=== PATIENT | male | born 1995 | race American Indian/Alaskan Native ===

== ENCOUNTER 2018-02-08 15:35 | Inpatient (IN) | payer BC ==
[2018-02-08] MEDS ORDERED: Sodium Chloride 0.9% 1,000 ML IV STA (16:05)
[2018-02-08] MEDS ORDERED: Iohexol 300 100 ML IJ ONE ×3 (16:13→16:14)
[2018-02-08] MEDS ORDERED: Sodium Chloride 0.9% 50 ML IV ONE (16:15)
[2018-02-08 16:38] LABS: BASO % 0.7 % (0.0-2.0); EOS % 0.5 % (0.0-4.0); HEMOGLOBIN 14.9 g/dL (12.0-18.0); LYMPH # 1.2 K/uL (1.0-4.3); LYMPH % 18.6 % (20.0-40.0); MEAN CELL VOLUME 89.4 fl (80.0-94.0); MEAN CORPUSCULAR HGB CONC 33.6 g/dL (33.0-37.0); MONO # 0.7 K/uL (0.0-0.8); MONO % 11.1 % (0.0-10.0); NEUT # 4.4 K/uL (1.8-7.0); NEUT % 69.1 % (50.0-75.0); NRBC % 0.1 % (0.0-0.0); RBC 4.94 Mil/uL (4.40-5.90); RED CELL DISTRIBUTION WIDTH 13.5 % (11.5-14.5); WHITE BLOOD COUNT 6.3 K/uL (4.8-10.8)
[2018-02-08 16:44] LABS: URINE BILIRUBIN NEGATIVE (NEGATIVE); URINE BLOOD NEGATIVE (NEGATIVE); URINE CLARITY SLIGHTY-CLOUDY (Clear); URINE COLOR YELLOW (YELLOW); URINE GLUCOSE (UA) NEG (Normal); URINE LEUKOCYTE ESTERASE NEG Leu/uL (Negative); URINE PROTEIN NEGATIVE (NEGATIVE); URINE UROBILINOGEN 0.2-1.0 mg/dL (0.2-1.0)
[2018-02-08 16:46] LABS: ALB/GLOB RATIO 1.2 (1.0-2.1); ALT/SGPT 39 U/L (21-72); AST/SGOT 32 U/L (17-59); BLOOD UREA NITROGEN 12 mg/dl (9-20); CALCIUM 9.5 mg/dL (8.4-10.2); GFR NON-AFRICAN AMERICAN > 60; INR 1.2 (0.9-1.2); LIPASE 31 U/L (23-300); PARTIAL THROMBOPLASTIN TIME 31.9 Seconds (25.6-37.1)
--- NOTE | 2018-02-08 17:02 | ED PDOC ---
HPI: Abdomen Time Seen by Provider: 02/08/18 15:43 Chief Complaint (Nursing): Abdominal Pain Chief Complaint (Provider): Abdominal Pain History Per: Patient History/Exam Limitations: no limitations Onset/Duration Of Symptoms: Hrs Current Symptoms Are (Timing): Still Present Location Of Pain/Discomfort: Diffuse Quality Of Discomfort: Cramping Associated Symptoms: Vomiting. denies: Fever, Diarrhea Additional Complaint(s): Edward Precsott is a 22 year old male with a past medical history of asthma who is presenting to the ED for evaluation of abdominal cramping and episodes of non -bloody vomiting, onset earlier this morning after he ate a burrito. Patient denies any diarrhea, or fevers. He offers no other medical complaints at this time. PMD: none provided Past Medical History Reviewed: Historical Data, Nursing Documentation, Vital Signs Vital Signs: Last Vital Signs Temp 98.5 F 02/08/18 15:37 Pulse 69 02/08/18 15:37 Resp 18 02/08/18 15:37 BP 155/73 H 02/08/18 15:37 Pulse Ox 100 02/08/18 17:31 - Medical History PMH: Asthma Denies: Anemia, Anxiety, Arthritis, Bronchitis, CHF, Crohn's Disease, Depression, Fibromyalgia, Fractures, Gastritis, Gall Bladder Disease, HIV, HTN, Hypercholesterolemia, Hyperthyroidism, Hypothyroidism, Kidney Stones, Migraine, Mitral Valve Prolapse, Pancreatitis, Peripheral Edema, Pneumonia, Pulmonary Embolism, Chronic Kidney Disease, Seizures, Sickle Cell Disease, Sleep Apnea - Surgical History Surgical History: Appendectomy (03/01/14) Denies: Cholecystectomy - Family History Family History: States: Unknown Family Hx - Social History Current smoker - smoking cessation education provided: No Alcohol: None Drugs: Denies - Home Medications Home Medications: Ambulatory Orders Medication Instructions Recorded No Known Home Med 02/08/18 - Allergies Allergies/Adverse Reactions: Allergies Allergy/AdvReac Type Severity Reaction Status Date / Time shellfish derived Allergy RASH Verified 02/08/18 15:37 Review of Systems ROS Statement: Except As Marked, All Systems Reviewed And Found Negative Constitutional: Negative for: Fever Gastrointestinal: Positive for: Vomiting, Abdominal Pain. Negative for: Diarrhea Physical Exam - Reviewed Nursing Documentation Reviewed: Yes Vital Signs Reviewed: Yes - Physical Exam Appears: Positive for: Non-toxic, No Acute Distress Head Exam: Positive for: ATRAUMATIC, NORMAL INSPECTION, NORMOCEPHALIC Skin: Positive for: Normal Color, Warm, DRY Eye Exam: Positive for: EOMI, Normal appearance, PERRL ENT: Positive for: Normal ENT Inspection Neck: Positive for: Normal, Painless ROM Cardiovascular/Chest: Positive for: Regular Rate, Rhythm. Negative for: Murmur Respiratory: Positive for: Normal Breath Sounds. Negative for: Respiratory Distress Gastrointestinal/Abdominal: Positive for: Soft, Tenderness (left upper and lower quadrant tenderness). Negative for: Mass, Distended, Guarding, Rebound Back: Positive for: Normal Inspection. Negative for: L CVA Tenderness, R CVA Tenderness, Vertebral Tenderness Extremity: Positive for: Normal ROM. Negative for: Deformity, Swelling Neurologic/Psych: Positive for: Alert, Oriented. Negative for: Motor/Sensory Deficits - Laboratory Results Result Diagrams: 02/08/18 16:33 02/08/18 16:33 - ECG O2 Sat by Pulse Oximetry: 100 (RA) Pulse Ox Interpretation: Normal Medical Decision Making Medical Decision Making: Time: 16:05 Impression: gastritis vs. 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 Scribe Attestation: Documented by, Kaia Patrick acting as a scribe for Florecita Medina MD. Provider Scribe Attestation: All medical record entries made by the Scribe were at my direction and personally dictated by me. I have reviewed the chart and agree that the record accurately reflects my personal performance of the history, physical exam, medical decision making, and the department course for this patient. I have also personally directed, reviewed, and agree with the discharge instructions and disposition. Disposition - Clinical Impression Clinical Impression: Intestinal obstruction - Patient ED Disposition Is Patient to be Admitted: Yes - Disposition Disposition Time: 17:35 Condition: GUARDED Forms: [facility]) - Pt Status Changed To: Hospital Disposition Of: Inpatient - Admit Certification Admit to Inpatient:: After my assessment, the patient will require hospitalization for at least two midnights. This is because of the severity of symptoms shown, intensity of services needed, and/or the medical risk in this patient being treated as an outpatient. - POA Present On Arrival: None
--- NOTE | 2018-02-08 17:33 | CT ---
Date of service: 02/08/2018 PROCEDURE: CT Abdomen and Pelvis with contrast HISTORY: L sided abd pain, vomiting COMPARISON: CT scan of the abdomen and pelvis dated 03/05/2014. TECHNIQUE: Contrast dose: 95 mL Omnipaque 300 Radiation dose: Total exam DLP = 387.9 mGy-cm. This CT exam was performed using one or more of the following dose reduction techniques: Automated exposure control, adjustment of the mA and/or kV according to patient size, and/or use of iterative reconstruction technique. FINDINGS: LOWER THORAX: Unremarkable. LIVER: Unremarkable. No gross lesion or ductal dilatation. GALLBLADDER AND BILE DUCTS: Unremarkable. PANCREAS: Unremarkable. No gross lesion or ductal dilatation. SPLEEN: Unremarkable. ADRENALS: Unremarkable. No mass. KIDNEYS AND URETERS: Unremarkable. No hydronephrosis. No solid mass. VASCULATURE: Unremarkable. No aortic aneurysm. BOWEL: Swirling of mesenteric vessels and a loop of bowel with extensive mesenteric edema and small volume pelvic fluid. Loop of bowel seen within the extensive focal mesenteric edema with very thickened edematous wall. APPENDIX: Prior appendectomy. PERITONEUM: Surgical clips adjacent to the rectum and along the right pelvic sidewall. No free air. LYMPH NODES: Unremarkable. No enlarged lymph nodes. BLADDER: Unremarkable. REPRODUCTIVE: Unremarkable. BONES: No acute fracture. OTHER FINDINGS: None. IMPRESSION: Swirling of mesenteric vessels and loop of bowel with extensive mesenteric edema and small volume pelvic fluid concerning for possible closed loop obstruction with bowel compromise. Heart and surgical consultation is advised. No pneumatosis or evidence of portal venous gas. Findings conveyed to Dr. Medina by Dr. Uribe at 5:20 p.m. on 02/08/2018.
[2018-02-08] MEDS ORDERED: HYDROmorphone 0.5 mg/0.5 ml ISec IVP PRN (18:15)
--- NOTE | 2018-02-08 18:26 | CP.PCM.CON ---
History of Present Illness - History of Present Illness History of Present Illness: General Surgery Dr. Austin 22 y/o M w/ PMHx of tobacco abuse, marijuana use, and asthma presents to the ED c/o abd pain. Pt reports pain started this AM s/p eating breakfast burritto. Pt denies similar pain in the past. Pt reports nothing makes pain better or worse. Pain localized to LLQ w/ no radiation. Pt reports concurrent NBNB vomiting x2. Pt also admits to constipation w/ small hard BM this AM and abd distention. Pt reports distention similar to when Dx w/ appendicitis. Pt denies F/C, diarrhea, CP, SOB, dysuria, hematemesis. PMHx: see above Meds: reviewed in chart ALL: shellfish PSHx: lap appy (2013); lap converted to open intra-abd abscess drainage (2013) SHx: 1-2 black and milds daily; 1-2 blunts per day; denies EtOH use FHx: noncontributory Review of Systems - Review of Systems All systems: reviewed and no additional remarkable complaints except (see HPI) Past Patient History - Past Medical History & Family History Past Medical History?: No - Past Social History Alcohol: None Drugs: Denies - CARDIAC Hx Congestive Heart Failure: No Hx Hypercholesterolemia: No Hx Hypertension: No Hx Mitral Valve Prolapse: No Hx Peripheral Edema: No - PULMONARY Hx Asthma: Yes Hx Bronchitis: No Hx Pneumonia: No Hx Pulmonary Embolism: No Hx Sleep Apnea: No - NEUROLOGICAL Hx Migraine: No Hx Seizures: No - HEENT Hx Deafness: No Hx Epistaxis: No Hx Glaucoma: No - RENAL Hx Chronic Kidney Disease: No Hx Kidney Stones: No - ENDOCRINE/METABOLIC Hx Hyperthyroidism: No Hx Hypothyroidism: No - HEMATOLOGICAL/ONCOLOGICAL Hx Anemia: No Hx Human Immunodeficiency Virus (HIV): No Hx Sickle Cell Disease: No - INTEGUMENTARY Hx Howard: No Hx Cellulitis: No Hx Eczema: No Hx Psoriasis: No - MUSCULOSKELETAL/RHEUMATOLOGICAL Hx Arthritis: No Hx Fractures: No - GASTROINTESTINAL Hx Crohn's Disease: No Hx Gall Bladder Disease: No Hx Gastritis: No Hx Pancreatitis: No - GENITOURINARY/GYNECOLOGICAL Hx Hematuria: No - PSYCHIATRIC Hx Anxiety: No Hx Depression: No - SURGICAL HISTORY Hx Appendectomy: Yes (03/01/14) Hx Cholecystectomy: No - ANESTHESIA Hx Anesthesia: Yes Hx Anesthesia Reactions: No Hx Malignant Hyperthermia: No Meds Allergies/Adverse Reactions: Allergies Allergy/AdvReac Type Severity Reaction Status Date / Time shellfish derived Allergy RASH Verified 02/08/18 15:37 - Medications Medications: Current Medications Acetaminophen (Tylenol 325 Mg Supp) 650 mg CO Q4 PRN PRN Reason: Pain, Mild (1-3) Hydromorphone HCl (Dilaudid) 0.5 mg IVP Q3 PRN PRN Reason: Pain, moderate (4-7) Stop: 02/10/18 18:16 Ketorolac Tromethamine (Toradol) 30 mg IVP Q6 [facility] Stop: 02/13/18 22:01 Metoclopramide HCl (Reglan) 10 mg IVP Q8 [facility] Physical Exam - Constitutional Appears: Non-toxic, No Acute Distress - Head Exam Head Exam: NORMAL INSPECTION - Eye Exam Eye Exam: Normal appearance - ENT Exam ENT Exam: Mucous Membranes Moist - Respiratory Exam Respiratory Exam: NORMAL BREATHING PATTERN. absent: Accessory Muscle Use, Respiratory Distress - Cardiovascular Exam Cardiovascular Exam: REGULAR RHYTHM. absent: Bradycardia, Tachycardia - GI/Abdominal Exam GI & Abdominal Exam: Distended (minimal ), Firm, Guarding, Rigid, Tenderness ( TTP LLQ). absent: Rebound - Extremities Exam Extremities exam: Negative for: pedal edema, tenderness - Neurological Exam Neurological exam: Alert, Oriented x3 - Psychiatric Exam Psychiatric exam: Normal Affect, Normal Mood - Skin Skin Exam: Dry, Intact, Normal Color, Warm Results - Vital Signs Recent Vital Signs: Last Vital Signs Temp 98.4 F 02/08/18 18:10 Pulse 60 02/08/18 18:10 Resp 12 02/08/18 18:10 BP 144/89 02/08/18 18:10 Pulse Ox 99 02/08/18 18:10 - Labs Result Diagrams: 02/08/18 16:33 02/08/18 16:33 Labs: Laboratory Results - last 24 hr 02/08/18 02/08/18 02/08/18 16:33 16:33 16:33 WBC 6.3 RBC 4.94 Hgb 14.9 Hct 44.2 MCV 89.4 MCH 30.0 MCHC 33.6 RDW 13.5 Plt Count 228 MPV 9.0 Neut % (Auto) 69.1 Lymph % (Auto) 18.6 L [place] % (Auto) 11.1 H Eos % (Auto) 0.5 Baso % (Auto) 0.7 Neut # (Auto) 4.4 Lymph # (Auto) 1.2 [place] # (Auto) 0.7 Eos # (Auto) 0.0 Baso # (Auto) 0.0 PT 13.0 INR 1.2 APTT 31.9 Sodium 143 Potassium 4.4 Chloride 102 Carbon Dioxide 27 Anion Gap 18 BUN 12 Creatinine 1.1 Est GFR ( Amer) > 60 Est GFR (Non-Af Amer) > 60 Random Glucose 111 H Calcium 9.5 Total Bilirubin 0.6 AST 32 ALT 39 Alkaline Phosphatase 60 Total Protein 9.1 H Albumin 5.0 Globulin 4.1 H Albumin/Globulin Ratio 1.2 Lipase 31 Urine Color Urine Clarity Urine pH Ur Specific [place] Urine Protein Urine Glucose (UA) Urine Ketones Urine Blood Urine Nitrate Urine Bilirubin Urine Urobilinogen Ur Leukocyte Esterase Urine RBC (Auto) Urine Microscopic WBC 02/08/18 16:33 WBC RBC Hgb Hct MCV MCH MCHC RDW Plt Count MPV Neut % (Auto) Lymph % (Auto) [place] % (Auto) Eos % (Auto) Baso % (Auto) Neut # (Auto) Lymph # (Auto) [place] # (Auto) Eos # (Auto) Baso # (Auto) PT INR APTT Sodium Potassium Chloride Carbon Dioxide Anion Gap BUN Creatinine Est GFR ( Amer) Est GFR (Non-Af Amer) Random Glucose Calcium Total Bilirubin AST ALT Alkaline Phosphatase Total Protein Albumin Globulin Albumin/Globulin Ratio Lipase Urine Color Yellow Urine Clarity Slighty-cloudy Urine pH 8.0 Ur Specific [place] 1.014 Urine Protein Negative Urine Glucose (UA) Neg Urine Ketones Negative Urine Blood Negative Urine Nitrate Negative Urine Bilirubin Negative Urine Urobilinogen 0.2-1.0 Ur Leukocyte Esterase Neg Urine RBC (Auto) < 1 Urine Microscopic WBC 1 - Imaging and Cardiology CT scan - abdomen Status: Image reviewed by me, Report reviewed by me Assessment & Plan - Assessment and Plan (Free Text) Assessment: 22 y/o M w/ SBO - NPO/IVF - NGT if vomiting develops - Jess [facility] - pain management - serial abd exams - AM labs - GI/DVT PPx - encourage OOB to chair/Amb/IS use Pt discussed w/ Dr. Norman Lamas DO PGY3
--- NOTE | 2018-02-08 18:52 | CP.PCM.HP ---
<Floridalma Miller - Last Filed: 02/09/18 05:21> History of Present Illness - History of Present Illness History of Present Illness: 22 yo M with hx asthma presented to ED today due to complaint of 8/10 dull, aching abdominal pain. He was in usual state of health yesterday and when he woke up this morning. He ate breakfast burrito sandwich this morning, and subsequently developed vomiting x2 and abdominal pain. Denies blood in vomit and describes vomit as consisting of food particles. States he tried to have BM but felt like he was constipated. Denies similar pain in the past but states he felt similar bloating sensation when he was diagnosed with appendicitis in 2013. Denies chest pain, shortness of breath, fevers, chills, issues with urination, leg pain/edema. PMD: Dr. Arciniega PMHx: no chronic medical problems; active tobacco and marijuana user Past Surg hx: lap appendectomy with subsequent open procedure due to abscess ( 2013) Social hx: smokes 1-2 black and milds daily, marijuana use daily, denies any alcohol use Fam hx: denies chronic illness in family members Allergies: shellfish Medications: no chronic medications ED course: Vitals: BP 155/73 on triage, 144/89 repeat. HR 69, Temp 98.5, O2 sat 100 on room air, RR 18 Labs: CBC: 6.3>14.9/44.2<228 CMP: Na 143/K 4.4, Cl 102/CO2 27, BUN 12/Cr 1.1 < 111, AST 32, ALT 39, Lipase 31 UA, unremarkable Coagulation studies: PT 13.0, INR 1.2, PTT 31.9 Imaging: CT abd/pelvis, report available. Concerning for possible closed loop obstruction. Medications: 1L NS 2mg IVP morphine 4mg IVP odansetron 20 mg Dicyclomine Consult: Surgery, Dr. Austin Present on Admission - Present on Admission Any Indicators Present on Admission: No Review of Systems - Review of Systems All systems: reviewed and no additional remarkable complaints except - Gastrointestinal Gastrointestinal: Abdominal Pain, Bloating, Nausea, Vomiting Past Patient History - Past Medical History & Family History Past Medical History?: No - Past Social History Smoking Status: Light Smoker < 10 Cigarettes Daily (black and milds) Alcohol: None Drugs: Cannabis - CARDIAC Hx Congestive Heart Failure: No Hx Hypercholesterolemia: No Hx Hypertension: No Hx Mitral Valve Prolapse: No Hx Peripheral Edema: No - PULMONARY Hx Asthma: Yes Hx Bronchitis: No Hx Pneumonia: No Hx Pulmonary Embolism: No Hx Sleep Apnea: No - NEUROLOGICAL Hx Migraine: No Hx Seizures: No - HEENT Hx Deafness: No Hx Epistaxis: No Hx Glaucoma: No - RENAL Hx Chronic Kidney Disease: No Hx Kidney Stones: No - ENDOCRINE/METABOLIC Hx Hyperthyroidism: No Hx Hypothyroidism: No - HEMATOLOGICAL/ONCOLOGICAL Hx Anemia: No Hx Human Immunodeficiency Virus (HIV): No Hx Sickle Cell Disease: No - INTEGUMENTARY Hx Howard: No Hx Cellulitis: No Hx Eczema: No Hx Psoriasis: No - MUSCULOSKELETAL/RHEUMATOLOGICAL Hx Arthritis: No Hx Fractures: No - GASTROINTESTINAL Hx Crohn's Disease: No Hx Gall Bladder Disease: No Hx Gastritis: No Hx Pancreatitis: No - GENITOURINARY/GYNECOLOGICAL Hx Hematuria: No - PSYCHIATRIC Hx Anxiety: No Hx Depression: No - SURGICAL HISTORY Hx Appendectomy: Yes (03/01/14) Hx Cholecystectomy: No - ANESTHESIA Hx Anesthesia: Yes Hx Anesthesia Reactions: No Hx Malignant Hyperthermia: No Meds Allergies/Adverse Reactions: Allergies Allergy/AdvReac Type Severity Reaction Status Date / Time shellfish derived Allergy RASH Verified 02/08/18 15:37 Physical Exam - Constitutional Appears: No Acute Distress - Head Exam Head Exam: NORMAL INSPECTION - Eye Exam Eye Exam: EOMI, Normal appearance. absent: Scleral icterus - ENT Exam ENT Exam: Mucous Membranes Moist, Normal Oropharynx - Neck Exam Neck exam: Positive for: Normal Inspection - Respiratory Exam Respiratory Exam: Clear to Auscultation Bilateral, NORMAL BREATHING PATTERN. absent: Wheezes, Respiratory Distress - Cardiovascular Exam Cardiovascular Exam: REGULAR RHYTHM, +S1, +S2 - GI/Abdominal Exam GI & Abdominal Exam: Guarding, Hyperactive Bowel Sounds, Soft, Tenderness - Extremities Exam Extremities exam: Positive for: normal inspection. Negative for: calf tenderness, pedal edema - Back Exam Back exam: NORMAL INSPECTION - Neurological Exam Neurological exam: Alert, Oriented x3 - Skin Skin Exam: Dry, Intact, Warm Results - Vital Signs Recent Vital Signs: Last Vital Signs Temp 98.4 F 02/08/18 18:27 Pulse 60 02/08/18 18:27 Resp 12 02/08/18 18:27 BP 144/89 02/08/18 18:27 Pulse Ox 99 02/08/18 18:10 - Labs Result Diagrams: 02/08/18 16:33 02/08/18 16:33 Labs: Laboratory Results - last 24 hr 02/08/18 02/08/18 02/08/18 16:33 16:33 16:33 WBC 6.3 RBC 4.94 Hgb 14.9 Hct 44.2 MCV 89.4 MCH 30.0 MCHC 33.6 RDW 13.5 Plt Count 228 MPV 9.0 Neut % (Auto) 69.1 Lymph % (Auto) 18.6 L [place] % (Auto) 11.1 H Eos % (Auto) 0.5 Baso % (Auto) 0.7 Neut # (Auto) 4.4 Lymph # (Auto) 1.2 [place] # (Auto) 0.7 Eos # (Auto) 0.0 Baso # (Auto) 0.0 PT 13.0 INR 1.2 APTT 31.9 Sodium 143 Potassium 4.4 Chloride 102 Carbon Dioxide 27 Anion Gap 18 BUN 12 Creatinine 1.1 Est GFR ( Amer) > 60 Est GFR (Non-Af Amer) > 60 Random Glucose 111 H Calcium 9.5 Total Bilirubin 0.6 AST 32 ALT 39 Alkaline Phosphatase 60 Total Protein 9.1 H Albumin 5.0 Globulin 4.1 H Albumin/Globulin Ratio 1.2 Lipase 31 Urine Color Urine Clarity Urine pH Ur Specific [place] Urine Protein Urine Glucose (UA) Urine Ketones Urine Blood Urine Nitrate Urine Bilirubin Urine Urobilinogen Ur Leukocyte Esterase Urine RBC (Auto) Urine Microscopic WBC 02/08/18 16:33 WBC RBC Hgb Hct MCV MCH MCHC RDW Plt Count MPV Neut % (Auto) Lymph % (Auto) [place] % (Auto) Eos % (Auto) Baso % (Auto) Neut # (Auto) Lymph # (Auto) [place] # (Auto) Eos # (Auto) Baso # (Auto) PT INR APTT Sodium Potassium Chloride Carbon Dioxide Anion Gap BUN Creatinine Est GFR ( Amer) Est GFR (Non-Af Amer) Random Glucose Calcium Total Bilirubin AST ALT Alkaline Phosphatase Total Protein Albumin Globulin Albumin/Globulin Ratio Lipase Urine Color Yellow Urine Clarity Slighty-cloudy Urine pH 8.0 Ur Specific [place] 1.014 Urine Protein Negative Urine Glucose (UA) Neg Urine Ketones Negative Urine Blood Negative Urine Nitrate Negative Urine Bilirubin Negative Urine Urobilinogen 0.2-1.0 Ur Leukocyte Esterase Neg Urine RBC (Auto) < 1 Urine Microscopic WBC 1 Assessment & Plan - Assessment and Plan (Free Text) Assessment: 22 yo M with past hx asthma admitted for closed loop bowel obstruction seen on CT. Plan: # Bowel Obstruction - General surgery consult, management as per surgery as outlined below - NPO - f/u morning CBC, CMP - Pain control - IV hydration - NGT if vomiting - Serial exams # DVT prophylaxis - SCD and ambulation, hold pharmacological agents for now # Code status - Full code <Elif Tavarez - Last Filed: 02/09/18 09:08> Results - Vital Signs Recent Vital Signs: Last Vital Signs Temp 97.9 F 02/09/18 08:18 Pulse 71 02/09/18 08:18 Resp 20 02/09/18 08:18 BP 146/65 02/09/18 08:18 Pulse Ox 98 02/09/18 08:18 - Labs Result Diagrams: 02/09/18 05:20 02/09/18 05:20 Labs: Laboratory Results - last 24 hr 02/08/18 02/08/18 02/08/18 16:33 16:33 16:33 WBC 6.3 RBC 4.94 Hgb 14.9 Hct 44.2 MCV 89.4 MCH 30.0 MCHC 33.6 RDW 13.5 Plt Count 228 MPV 9.0 Neut % (Auto) 69.1 Lymph % (Auto) 18.6 L [place] % (Auto) 11.1 H Eos % (Auto) 0.5 Baso % (Auto) 0.7 Neut # (Auto) 4.4 Lymph # (Auto) 1.2 [place] # (Auto) 0.7 Eos # (Auto) 0.0 Baso # (Auto) 0.0 PT 13.0 INR 1.2 APTT 31.9 Sodium 143 Potassium 4.4 Chloride 102 Carbon Dioxide 27 Anion Gap 18 BUN 12 Creatinine 1.1 Est GFR ( Amer) > 60 Est GFR (Non-Af Amer) > 60 Random Glucose 111 H Calcium 9.5 Phosphorus Magnesium Total Bilirubin 0.6 AST 32 ALT 39 Alkaline Phosphatase 60 Total Protein 9.1 H Albumin 5.0 Globulin 4.1 H Albumin/Globulin Ratio 1.2 Lipase 31 Urine Color Urine Clarity Urine pH Ur Specific [place] Urine Protein Urine Glucose (UA) Urine Ketones Urine Blood Urine Nitrate Urine Bilirubin Urine Urobilinogen Ur Leukocyte Esterase Urine RBC (Auto) Urine Microscopic WBC 02/08/18 02/09/18 02/09/18 16:33 05:20 05:20 WBC 5.1 RBC 4.40 Hgb 13.3 Hct 38.7 MCV 88.1 MCH 30.2 MCHC 34.3 RDW 13.4 Plt Count 204 MPV 9.0 Neut % (Auto) 43.0 L Lymph % (Auto) 42.7 H [place] % (Auto) 12.4 H Eos % (Auto) 1.1 Baso % (Auto) 0.8 Neut # (Auto) 2.2 Lymph # (Auto) 2.2 [place] # (Auto) 0.6 Eos # (Auto) 0.1 Baso # (Auto) 0.0 PT INR APTT Sodium 142 Potassium 4.5 Chloride 103 Carbon Dioxide 28 Anion Gap 16 BUN 10 Creatinine 1.1 Est GFR ( Amer) > 60 Est GFR (Non-Af Amer) > 60 Random Glucose 92 Calcium 9.3 Phosphorus 4.1 Magnesium 1.9 Total Bilirubin 0.7 AST 27 ALT 28 Alkaline Phosphatase 48 Total Protein 7.4 Albumin 4.0 Globulin 3.4 Albumin/Globulin Ratio 1.2 Lipase Urine Color Yellow Urine Clarity Slighty-cloudy Urine pH 8.0 Ur Specific [place] 1.014 Urine Protein Negative Urine Glucose (UA) Neg Urine Ketones Negative Urine Blood Negative Urine Nitrate Negative Urine Bilirubin Negative Urine Urobilinogen 0.2-1.0 Ur Leukocyte Esterase Neg Urine RBC (Auto) < 1 Urine Microscopic WBC 1 Attending/Attestation - Attestation I have personally seen and examined this patient.: Yes I have fully participated in the care of the patient.: Yes I have reviewed all pertinent clinical information: Yes
[2018-02-08] MEDS: Lactated Ringer's 1,000 ML IV SCH (19:30)
[2018-02-09] MEDS: Lactated Ringer's 1,000 ML IV SCH ×2 (02:30→05:40)
[2018-02-09 07:08] LABS: BASO % 0.8 % (0.0-2.0); EOS # 0.1 K/uL (0.0-0.7); EOS % 1.1 % (0.0-4.0); HEMOGLOBIN 13.3 g/dL (12.0-18.0); LYMPH # 2.2 K/uL (1.0-4.3); LYMPH % 42.7 % (20.0-40.0); MEAN CELL VOLUME 88.1 fl (80.0-94.0); MEAN CORPUSCULAR HEMOGLOBIN 30.2 pg (27.0-31.0); MEAN CORPUSCULAR HGB CONC 34.3 g/dL (33.0-37.0); MONO # 0.6 K/uL (0.0-0.8); MONO % 12.4 % (0.0-10.0); NEUT # 2.2 K/uL (1.8-7.0); NRBC % 0.1 % (0.0-0.0); RBC 4.4 Mil/uL (4.40-5.90); RED CELL DISTRIBUTION WIDTH 13.4 % (11.5-14.5); WHITE BLOOD COUNT 5.1 K/uL (4.8-10.8)
--- NOTE | 2018-02-09 07:19 | CP.PCM.PN ---
Subjective - Date & Time of Evaluation Date of Evaluation: 02/09/18 Time of Evaluation: 07:17 - Subjective Subjective: General Surgery - Dr. Austin PT S&E. NAEO. Pt passing flatus and had BM in ED. He denies any abdominal pain, nausea or vomiting. No Fevers/Chills,SOB/Chest pain. Objective - Vital Signs/Intake and Output Vital Signs (last 24 hours): Temp Pulse Resp BP Pulse Ox 97.9 F 58 L 20 128/75 98 02/08/18 23:19 02/08/18 23:19 02/08/18 23:19 02/08/18 23:19 02/08/18 23:19 - Medications Medications: Current Medications Acetaminophen (Tylenol 325 Mg Supp) 650 mg MI Q4 PRN PRN Reason: Pain, Mild (1-3) Hydromorphone HCl (Dilaudid) 0.5 mg IVP Q3 PRN PRN Reason: Pain, moderate (4-7) Stop: 02/10/18 18:16 Lactated Ringer's (Lactated Ringer's) 1,000 mls @ 125 mls/hr IV .Q8H [facility] Last Admin: 02/09/18 05:40 Dose: 125 mls/hr Ketorolac Tromethamine (Toradol) 30 mg IVP Q6 [facility] Stop: 02/13/18 22:01 Last Admin: 02/09/18 04:00 Dose: Not Given Metoclopramide HCl (Reglan) 10 mg IVP Q8 [facility] Last Admin: 02/09/18 00:31 Dose: 10 mg - Labs Labs: 02/09/18 05:20 02/08/18 16:33 PT 13.0 Seconds (9.8-13.1) 02/08/18 16:33 INR 1.2 (0.9-1.2) 02/08/18 16:33 APTT 31.9 Seconds (25.6-37.1) 02/08/18 16:33 - Constitutional Appears: No Acute Distress - Head Exam Head Exam: ATRAUMATIC, NORMAL INSPECTION, NORMOCEPHALIC - Eye Exam Eye Exam: Normal appearance - Respiratory Exam Respiratory Exam: NORMAL BREATHING PATTERN. absent: Respiratory Distress - Cardiovascular Exam Cardiovascular Exam: REGULAR RHYTHM - GI/Abdominal Exam GI & Abdominal Exam: Soft. absent: Distended, Firm, Guarding, Rigid, Tenderness , Rebound - Neurological Exam Neurological Exam: Alert, Oriented x3 - Psychiatric Exam Psychiatric exam: Normal Affect, Normal Mood - Skin Skin Exam: Dry, Intact Assessment and Plan - Assessment and Plan (Free Text) Assessment: 22 y/o M w/ SBO, resolving - Clear liquid diet, monitor and slowly advance as tolerated - Regmarcela [facility] - Encourage OOB/Ambulation DW Dr Norman Cross PGy4
[2018-02-09 07:23] LABS: ALB/GLOB RATIO 1.2 (1.0-2.1); ALT/SGPT 28 U/L (21-72); AST/SGOT 27 U/L (17-59); BLOOD UREA NITROGEN 10 mg/dl (9-20); CALCIUM 9.3 mg/dL (8.4-10.2); GFR NON-AFRICAN AMERICAN > 60
--- NOTE | 2018-02-09 08:02 | CP.PCM.PN ---
<John Bernabe - Last Filed: 02/09/18 11:58> Subjective - Date & Time of Evaluation Date of Evaluation: 02/09/18 Time of Evaluation: 08:00 - Subjective Subjective: Pt is seen and examined at bed side. No acute event overnight, Pt have no new complain, he have good appetite, ate today what they served him, he passed 2 BM since yesterday describe it as soft bleb stool. Pt denies any abdominal pain since yesterday or vomit. Pt feeling great. Pt denies fever, chills, chest pain , abd pain, diarrhea, constipation, dysuria, polyuria. Objective - Vital Signs/Intake and Output Vital Signs (last 24 hours): Temp Pulse Resp BP Pulse Ox 97.9 F 58 L 20 128/75 98 02/08/18 23:19 02/08/18 23:19 02/08/18 23:19 02/08/18 23:19 02/08/18 23:19 - Medications Medications: Current Medications Acetaminophen (Tylenol 325 Mg Supp) 650 mg SD Q4 PRN PRN Reason: Pain, Mild (1-3) Hydromorphone HCl (Dilaudid) 0.5 mg IVP Q3 PRN PRN Reason: Pain, moderate (4-7) Stop: 02/10/18 18:16 Lactated Ringer's (Lactated Ringer's) 1,000 mls @ 125 mls/hr IV .Q8H [facility] Last Admin: 02/09/18 05:40 Dose: 125 mls/hr Ketorolac Tromethamine (Toradol) 30 mg IVP Q6 PRISCILLA Stop: 02/13/18 22:01 Last Admin: 02/09/18 04:00 Dose: Not Given Metoclopramide HCl (Reglan) 10 mg IVP Q8 PRISCILLA Last Admin: 02/09/18 00:31 Dose: 10 mg - Labs Labs: 02/09/18 05:20 02/09/18 05:20 PT 13.0 Seconds (9.8-13.1) 02/08/18 16:33 INR 1.2 (0.9-1.2) 02/08/18 16:33 APTT 31.9 Seconds (25.6-37.1) 02/08/18 16:33 - Constitutional Appears: Well, Non-toxic, No Acute Distress - Head Exam Head Exam: ATRAUMATIC, NORMAL INSPECTION, NORMOCEPHALIC - Eye Exam Eye Exam: EOMI, Normal appearance, PERRL Pupil Exam: NORMAL ACCOMODATION, PERRL - ENT Exam ENT Exam: Mucous Membranes Moist, Normal Exam - Neck Exam Neck Exam: Full ROM, Normal Inspection. absent: Tenderness - Respiratory Exam Respiratory Exam: Clear to Ausculation Bilateral, NORMAL BREATHING PATTERN. absent: Rales, Wheezes, Respiratory Distress, Stridor - Cardiovascular Exam Cardiovascular Exam: REGULAR RHYTHM, +S1, +S2. absent: JVD, RRR, Rubs, +S4, Murmur - GI/Abdominal Exam GI & Abdominal Exam: Soft, Normal Bowel Sounds. absent: Distended, Guarding, Tenderness, Diminished Bowel Sounds, Hernia, Hypoactive Bowel Sounds, Mass, Organomegaly, Rebound - Extremities Exam Extremities Exam: Full ROM, Normal Capillary Refill, Normal Inspection - Back Exam Back Exam: NORMAL INSPECTION - Neurological Exam Neurological Exam: Alert, Awake, Oriented x3 - Psychiatric Exam Psychiatric exam: Normal Affect, Normal Mood - Skin Skin Exam: Dry, Intact, Normal Color, Warm Assessment and Plan - Assessment and Plan (Free Text) Assessment: 22 yo m with PMH of Asthma admitted for closed loop bowel obstruction seen on CT. Bowel Obstruction Improving Tolerate food Pass BM x2 Continue Acetomenophen prn Continue Aoradol prn Continue Dilaudid 0.5 mg Q3 Continue Reglan 10mg Lactic ringer 125ml/hr NGT if vomiting Advancing diet F/U Surgery recommendation DVT prophylaxis SCD and ambulation, hold pharmacological agents for now. OOB Code status Full code <Elif Tavarez - Last Filed: 02/10/18 08:30> Objective - Vital Signs/Intake and Output Vital Signs (last 24 hours): Temp Pulse Resp BP Pulse Ox 98.3 F 59 L 19 142/83 100 02/10/18 07:52 02/10/18 07:52 02/10/18 07:52 02/10/18 07:52 02/10/18 07:52 - Medications Medications: Current Medications Acetaminophen (Tylenol 650 Mg Supp) 650 mg SD Q4 PRN PRN Reason: Pain, Mild (1-3) - Labs Labs: 02/09/18 05:20 02/09/18 05:20 PT 13.0 Seconds (9.8-13.1) 02/08/18 16:33 INR 1.2 (0.9-1.2) 02/08/18 16:33 APTT 31.9 Seconds (25.6-37.1) 02/08/18 16:33 Attending/Attestation - Attestation I have personally seen and examined this patient.: Yes I have fully participated in the care of the patient.: Yes I have reviewed all pertinent clinical information, including history, physical exam and plan: Yes Notes (Text): 02/10/18 08:29 Attending note Patient seen and examined. Abd soft non tender, no rebound or guarding. Bowel sounds present.
[2018-02-09 16:54] VITALS: O2SAT 100
[2018-02-09 23:33] VITALS: PULSE 59
--- NOTE | 2018-02-10 07:50 | CP.PCM.PN ---
Subjective - Date & Time of Evaluation Date of Evaluation: 02/10/18 Time of Evaluation: 07:49 - Subjective Subjective: General surgery progress note for Dr. Kendra Fallon, PGY-2 Pt S & E at bedside at 0710 Pt reports abdominal pain resolved, flatus, multiple BMs. Denies N & V, other complaints. States he is ready to go home today. Objective - Vital Signs/Intake and Output Vital Signs (last 24 hours): Temp Pulse Resp BP Pulse Ox 97.9 F 59 L 20 143/82 100 02/09/18 23:32 02/09/18 23:32 02/09/18 23:32 02/09/18 23:32 02/09/18 23:32 - Medications Medications: Current Medications Acetaminophen (Tylenol 650 Mg Supp) 650 mg AL Q4 PRN PRN Reason: Pain, Mild (1-3) - Labs Labs: 02/09/18 05:20 02/09/18 05:20 PT 13.0 Seconds (9.8-13.1) 02/08/18 16:33 INR 1.2 (0.9-1.2) 02/08/18 16:33 APTT 31.9 Seconds (25.6-37.1) 02/08/18 16:33 - Constitutional Appears: Non-toxic, No Acute Distress - Head Exam Head Exam: ATRAUMATIC, NORMAL INSPECTION, NORMOCEPHALIC - Eye Exam Eye Exam: EOMI, Normal appearance - ENT Exam ENT Exam: Mucous Membranes Moist, Normal Exam - Neck Exam Neck Exam: Full ROM, Normal Inspection - Respiratory Exam Respiratory Exam: NORMAL BREATHING PATTERN - Cardiovascular Exam Cardiovascular Exam: REGULAR RHYTHM, +S1, +S2 - GI/Abdominal Exam GI & Abdominal Exam: Soft. absent: Distended, Firm, Guarding, Rigid, Tenderness - Neurological Exam Neurological Exam: Alert, Awake, CN II-XII Intact, Oriented x3 - Psychiatric Exam Psychiatric exam: Normal Affect, Normal Mood - Skin Skin Exam: Dry, Intact, Normal Color, Warm Assessment and Plan - Assessment and Plan (Free Text) Assessment: 22M w/SBO- resolved Plan: Tolerating regular diet OOBTC Ambulate Cleared for d/c home from surgical standpoint Will BLAIR attending Leeanne, PGY-2
[2018-02-10 07:53] VITALS: BP 142/83; RESP 19; TEMP 98.3
--- NOTE | 2018-02-10 08:44 | CP.PCM.DIS ---
<Nitish Alonzo - Last Filed: 02/10/18 14:23> Provider - Provider Date of Admission: 02/08/18 17:35 Attending physician: Satya Arciniega MD Primary care physician: Dr. Arciniega Time Spent in preparation of Discharge (in minutes): 15 Diagnosis - Discharge Diagnosis (1) Bowel obstruction Status: Resolved (2) Elevated BP without diagnosis of hypertension Status: Acute Hospital Course - Lab Results Lab Results: Most Recent Lab Values WBC 5.1 K/uL (4.8-10.8) 02/09/18 05:20 RBC 4.40 Mil/uL (4.40-5.90) 02/09/18 05:20 Hgb 13.3 g/dL (12.0-18.0) 02/09/18 05:20 Hct 38.7 % (35.0-51.0) 02/09/18 05:20 MCV 88.1 fl (80.0-94.0) 02/09/18 05:20 MCH 30.2 pg (27.0-31.0) 02/09/18 05:20 MCHC 34.3 g/dL (33.0-37.0) 02/09/18 05:20 RDW 13.4 % (11.5-14.5) 02/09/18 05:20 Plt Count 204 K/uL (130-400) 02/09/18 05:20 MPV 9.0 fl (7.2-11.7) 02/09/18 05:20 Neut % (Auto) 43.0 % (50.0-75.0) L 02/09/18 05:20 Lymph % (Auto) 42.7 % (20.0-40.0) H 02/09/18 05:20 [place] % (Auto) 12.4 % (0.0-10.0) H 02/09/18 05:20 Eos % (Auto) 1.1 % (0.0-4.0) 02/09/18 05:20 Baso % (Auto) 0.8 % (0.0-2.0) 02/09/18 05:20 Neut # (Auto) 2.2 K/uL (1.8-7.0) 02/09/18 05:20 Lymph # (Auto) 2.2 K/uL (1.0-4.3) 02/09/18 05:20 [place] # (Auto) 0.6 K/uL (0.0-0.8) 02/09/18 05:20 Eos # (Auto) 0.1 K/uL (0.0-0.7) 02/09/18 05:20 Baso # (Auto) 0.0 K/uL (0.0-0.2) 02/09/18 05:20 PT 13.0 Seconds (9.8-13.1) 02/08/18 16:33 INR 1.2 (0.9-1.2) 02/08/18 16:33 APTT 31.9 Seconds (25.6-37.1) 02/08/18 16:33 Sodium 142 mmol/l (132-148) 02/09/18 05:20 Potassium 4.5 MMOL/L (3.6-5.0) 02/09/18 05:20 Chloride 103 mmol/L (98-107) 02/09/18 05:20 Carbon Dioxide 28 mmol/L (22-30) 02/09/18 05:20 Anion Gap 16 (10-20) 02/09/18 05:20 BUN 10 mg/dl (9-20) 02/09/18 05:20 Creatinine 1.1 mg/dl (0.8-1.5) 02/09/18 05:20 Est GFR ( Amer) > 60 02/09/18 05:20 Est GFR (Non-Af Amer) > 60 02/09/18 05:20 Random Glucose 92 mg/dL (75-110) 02/09/18 05:20 Calcium 9.3 mg/dL (8.4-10.2) 02/09/18 05:20 Phosphorus 4.1 mg/dl (2.5-4.5) 02/09/18 05:20 Magnesium 1.9 MG/DL (1.6-2.3) 02/09/18 05:20 Total Bilirubin 0.7 mg/dl (0.2-1.3) 02/09/18 05:20 AST 27 U/L (17-59) 02/09/18 05:20 ALT 28 U/L (21-72) 02/09/18 05:20 Alkaline Phosphatase 48 U/L (38-126) 02/09/18 05:20 Total Protein 7.4 G/DL (6.3-8.2) 02/09/18 05:20 Albumin 4.0 g/dL (3.5-5.0) 02/09/18 05:20 Globulin 3.4 gm/dL (2.2-3.9) 02/09/18 05:20 Albumin/Globulin Ratio 1.2 (1.0-2.1) 02/09/18 05:20 Lipase 31 U/L (23-300) 02/08/18 16:33 Urine Color Yellow (YELLOW) 02/08/18 16:33 Urine Clarity Slighty-cloudy (Clear) 02/08/18 16:33 Urine pH 8.0 (5.0-8.0) 02/08/18 16:33 Ur Specific Rives 1.014 (1.003-1.030) 02/08/18 16:33 Urine Protein Negative mg/dL (NEGATIVE) 02/08/18 16:33 Urine Glucose (UA) Neg mg/dL (Normal) 02/08/18 16:33 Urine Ketones Negative mg/dL (NEGATIVE) 02/08/18 16:33 Urine Blood Negative (NEGATIVE) 02/08/18 16:33 Urine Nitrate Negative (NEGATIVE) 02/08/18 16:33 Urine Bilirubin Negative (NEGATIVE) 02/08/18 16:33 Urine Urobilinogen 0.2-1.0 mg/dL (0.2-1.0) 02/08/18 16:33 Ur Leukocyte Esterase Neg Marcia/uL (Negative) 02/08/18 16:33 Urine RBC (Auto) < 1 /hpf (0-3) 02/08/18 16:33 Urine Microscopic WBC 1 /hpf (0-5) 02/08/18 16:33 - Hospital Course Hospital Course: 22 yo M with hx asthma and lap appendectomy converted to open(2013) presented to ED today due to complaint of 8/10 dull, aching abdominal pain. Patient evaluated in ED and admitted on floor. CBC, CMP, Lipase, mg, phos, PT, PTT ordered. CT abdomen consistent with possible closed loop obstruction with bowel compromise. General surgery consulted. Improvement in symptoms with IV fluids and pain medications. Abdominal pain resolved, flatus, multiple BMs. Patient cleared from surgery. Patient to F/U with Dr. Pimentel as an outpatient basis. Discharge Exam - Head Exam Head Exam: ATRAUMATIC, NORMAL INSPECTION, NORMOCEPHALIC - Eye Exam Eye Exam: EOMI, Normal appearance, PERRL Pupil Exam: NORMAL ACCOMODATION, PERRL - ENT Exam ENT Exam: Mucous Membranes Moist - Neck Exam Neck exam: Full Rom - Respiratory Exam Respiratory Exam: Clear to PA & Lateral, NORMAL BREATHING PATTERN. absent: Wheezes, Respiratory Distress - Cardiovascular Exam Cardiovascular Exam: REGULAR RHYTHM, +S1, +S2. absent: Systolic Murmur - GI/Abdominal Exam GI & Abdominal Exam: Normal Bowel Sounds, Soft. absent: Distended, Guarding, Rigid, Tenderness - Back Exam Back exam: absent: CVA tenderness (L), CVA tenderness (R) - Neurological Exam Neurological exam: Alert, Oriented x3 - Psychiatric Exam Psychiatric exam: Normal Affect, Normal Mood - Skin Skin Exam: Dry, Intact, Normal Color Discharge Plan - Follow Up Plan Condition: FAIR Disposition: HOME/ ROUTINE Patient education suggested?: Yes Instructions: High Fiber Diet, Small Bowel Obstruction (DC) Additional Instructions: - ED precautions given - Home BP monitoring advised - F/U with Dr. Pimentel in 1 week for BP monitoring Referrals: Anthony Austin MD [Staff Provider] - John Pimentel MD [Staff Provider] - <John Pimentel - Last Filed: 02/12/18 06:58> Provider - Provider Date of Admission: 02/08/18 17:35 Attending physician: Satya Arciniega MD Hospital Course - Lab Results Lab Results: Most Recent Lab Values WBC 5.1 K/uL (4.8-10.8) 02/09/18 05:20 RBC 4.40 Mil/uL (4.40-5.90) 02/09/18 05:20 Hgb 13.3 g/dL (12.0-18.0) 02/09/18 05:20 Hct 38.7 % (35.0-51.0) 02/09/18 05:20 MCV 88.1 fl (80.0-94.0) 02/09/18 05:20 MCH 30.2 pg (27.0-31.0) 02/09/18 05:20 MCHC 34.3 g/dL (33.0-37.0) 02/09/18 05:20 RDW 13.4 % (11.5-14.5) 02/09/18 05:20 Plt Count 204 K/uL (130-400) 02/09/18 05:20 MPV 9.0 fl (7.2-11.7) 02/09/18 05:20 Neut % (Auto) 43.0 % (50.0-75.0) L 02/09/18 05:20 Lymph % (Auto) 42.7 % (20.0-40.0) H 02/09/18 05:20 Shackelford % (Auto) 12.4 % (0.0-10.0) H 02/09/18 05:20 Eos % (Auto) 1.1 % (0.0-4.0) 02/09/18 05:20 Baso % (Auto) 0.8 % (0.0-2.0) 02/09/18 05:20 Neut # (Auto) 2.2 K/uL (1.8-7.0) 02/09/18 05:20 Lymph # (Auto) 2.2 K/uL (1.0-4.3) 02/09/18 05:20 [place] # (Auto) 0.6 K/uL (0.0-0.8) 02/09/18 05:20 Eos # (Auto) 0.1 K/uL (0.0-0.7) 02/09/18 05:20 Baso # (Auto) 0.0 K/uL (0.0-0.2) 02/09/18 05:20 PT 13.0 Seconds (9.8-13.1) 02/08/18 16:33 INR 1.2 (0.9-1.2) 02/08/18 16:33 APTT 31.9 Seconds (25.6-37.1) 02/08/18 16:33 Sodium 142 mmol/l (132-148) 02/09/18 05:20 Potassium 4.5 MMOL/L (3.6-5.0) 02/09/18 05:20 Chloride 103 mmol/L (98-107) 02/09/18 05:20 Carbon Dioxide 28 mmol/L (22-30) 02/09/18 05:20 Anion Gap 16 (10-20) 02/09/18 05:20 BUN 10 mg/dl (9-20) 02/09/18 05:20 Creatinine 1.1 mg/dl (0.8-1.5) 02/09/18 05:20 Est GFR ( Amer) > 60 02/09/18 05:20 Est GFR (Non-Af Amer) > 60 02/09/18 05:20 Random Glucose 92 mg/dL (75-110) 02/09/18 05:20 Calcium 9.3 mg/dL (8.4-10.2) 02/09/18 05:20 Phosphorus 4.1 mg/dl (2.5-4.5) 02/09/18 05:20 Magnesium 1.9 MG/DL (1.6-2.3) 02/09/18 05:20 Total Bilirubin 0.7 mg/dl (0.2-1.3) 02/09/18 05:20 AST 27 U/L (17-59) 02/09/18 05:20 ALT 28 U/L (21-72) 02/09/18 05:20 Alkaline Phosphatase 48 U/L (38-126) 02/09/18 05:20 Total Protein 7.4 G/DL (6.3-8.2) 02/09/18 05:20 Albumin 4.0 g/dL (3.5-5.0) 02/09/18 05:20 Globulin 3.4 gm/dL (2.2-3.9) 02/09/18 05:20 Albumin/Globulin Ratio 1.2 (1.0-2.1) 02/09/18 05:20 Lipase 31 U/L (23-300) 02/08/18 16:33 Urine Color Yellow (YELLOW) 02/08/18 16:33 Urine Clarity Slighty-cloudy (Clear) 02/08/18 16:33 Urine pH 8.0 (5.0-8.0) 02/08/18 16:33 Ur Specific Rives 1.014 (1.003-1.030) 02/08/18 16:33 Urine Protein Negative mg/dL (NEGATIVE) 02/08/18 16:33 Urine Glucose (UA) Neg mg/dL (Normal) 02/08/18 16:33 Urine Ketones Negative mg/dL (NEGATIVE) 02/08/18 16:33 Urine Blood Negative (NEGATIVE) 02/08/18 16:33 Urine Nitrate Negative (NEGATIVE) 02/08/18 16:33 Urine Bilirubin Negative (NEGATIVE) 02/08/18 16:33 Urine Urobilinogen 0.2-1.0 mg/dL (0.2-1.0) 02/08/18 16:33 Ur Leukocyte Esterase Neg Marcia/uL (Negative) 02/08/18 16:33 Urine RBC (Auto) < 1 /hpf (0-3) 02/08/18 16:33 Urine Microscopic WBC 1 /hpf (0-5) 02/08/18 16:33 Attending/Attestation - Attestation I have personally seen and examined this patient.: Yes I have fully participated in the care of the patient.: Yes I have reviewed all pertinent clinical information, including history, physical exam and plan: Yes
== END 2018-02-10 09:52 | disposition home or self-care (01) | DRG 390 ==
LOC: H.ER 15:35 → H.ERHOLD 17:35 → H.MEDSURG1 20:04
PROVIDERS: ADMIT Family Medicine; ATTEND Family Medicine
DX: K56.699 Other intestinal obstruction unspecified as to partial versus complete obstruction (principal); J45.909 Unspecified asthma, uncomplicated; R03.0 Elevated blood-pressure reading, without diagnosis of hypertension; F12.90 Cannabis use, unspecified, uncomplicated; Z72.0 Tobacco use; Z91.013 Allergy to seafood

== ENCOUNTER 2018-02-27 21:23 | Emergency (ER) | payer BC ==
--- NOTE | 2018-02-27 23:18 | ED PDOC ---
HPI: Abdomen Time Seen by Provider: 02/27/18 22:32 Chief Complaint (Nursing): Abdominal Pain History Per: Patient History/Exam Limitations: no limitations Onset/Duration Of Symptoms: Hrs Outside of [place] travel?: No Current Symptoms Are (Timing): Still Present Location Of Pain/Discomfort: LUQ Quality Of Discomfort: Unable To Describe Associated Symptoms: denies: Fever, Chills, Nausea, Vomiting Exacerbating Factors: None Additional Complaint(s): 22 year old M with hx of appendectomy and SBO presenting with LUQ pain x 6 hours. States he had a soft BM today, no nausea or vomiting. No fevers, chillls, urinary symptms. States he had a colonoscopy that he reports was negative for acute pathology. Past Medical History Reviewed: Historical Data, Nursing Documentation, Vital Signs Vital Signs: Last Vital Signs Temp 98.0 F 02/27/18 21:38 Pulse 60 02/27/18 21:38 Resp 16 02/27/18 21:38 BP 124/68 02/27/18 21:38 Pulse Ox 98 02/27/18 23:18 - Medical History PMH: Asthma Denies: Anemia, Anxiety, Arthritis, Bronchitis, CHF, Crohn's Disease, Depression, Fibromyalgia, Fractures, Gastritis, Gall Bladder Disease, HIV, HTN, Hypercholesterolemia, Hyperthyroidism, Hypothyroidism, Kidney Stones, Migraine, Mitral Valve Prolapse, Pancreatitis, Peripheral Edema, Pneumonia, Pulmonary Embolism, Chronic Kidney Disease, Seizures, Sickle Cell Disease, Sleep Apnea - Surgical History Surgical History: Appendectomy (03/01/14) Denies: Cholecystectomy - Family History Family History: States: Unknown Family Hx - Home Medications Home Medications: Ambulatory Orders Medication Instructions Recorded No Known Home Med 02/08/18 - Allergies Allergies/Adverse Reactions: Allergies Allergy/AdvReac Type Severity Reaction Status Date / Time shellfish derived Allergy RASH Verified 02/27/18 21:37 Review of Systems ROS Statement: Except As Marked, All Systems Reviewed And Found Negative Gastrointestinal: Positive for: Abdominal Pain Physical Exam - Reviewed Nursing Documentation Reviewed: Yes Vital Signs Reviewed: Yes - Physical Exam Appears: Positive for: Well, Non-toxic, No Acute Distress Head Exam: Positive for: ATRAUMATIC, NORMAL INSPECTION, NORMOCEPHALIC Skin: Positive for: Normal Color, Warm, DRY Eye Exam: Positive for: EOMI, Normal appearance, PERRL ENT: Positive for: Normal ENT Inspection Neck: Positive for: Normal, Painless ROM Cardiovascular/Chest: Positive for: Regular Rate, Rhythm Respiratory: Positive for: CNT, Normal Breath Sounds Gastrointestinal/Abdominal: Positive for: Normal Exam, Soft Back: Positive for: Normal Inspection Extremity: Positive for: Normal ROM Neurologic/Psych: Positive for: Alert, Oriented - ECG O2 Sat by Pulse Oximetry: 98 Pulse Ox Interpretation: Normal Medical Decision Making Medical Decision MakinPM Hx of appendectomy and SBO presenting with abdominal pain -nontender abdomen, well appearing, normal vitals -unlikely SBO given patient's symptoms and PE -will get obstructive series, treat w/ bentyl and NSAID -pain possibly due to insufflation of colonoscopy 100 EXAM: XR Abdomen 2 Views With XR Chest CLINICAL HISTORY: 22 years old, male; Pain; Abdominal pain; Generalized; Additional info: Abd pain , HX of sbo TECHNIQUE: Frontal view of the chest, frontal view of the abdomen/pelvis and upright or decubitus view of the abdomen. COMPARISON: CR - ABDOMEN W/ CHEST 2014-03-05 02:33 FINDINGS: Lungs: No infiltrates. Pleural space: Intact. No pneumothorax. Heart: No cardiomegaly. Mediastinum: No widening. Intraperitoneal space: See below. Gastrointestinal tract: No dilation. Normal rectal gas is seen. Organs: Unremarkable as visualized. Bones/joints: No compression fracture. Soft tissues: Surgical clips in the pelvis. IMPRESSION: 1. No bowel obstruction. 2. No infiltrates. Thank you for allowing us to participate in the care of your patient. Dictated and Authenticated by: Stevie Kay MD 02/28/2018 1:07 AM Eastern Time ([place] & [place]) Informed patient's of results. Patient is feeling well at this time. Adivsed him to followup with his PMD and GI. Return precautions discussed. Disposition - Clinical Impression Clinical Impression: Abdominal pain - Disposition Referrals: Satya Arciniega MD [Staff Provider] - Disposition: Routine/Home Disposition Time: 01:20 Condition: STABLE Instructions: Stomach Ache and Stomach Upset Forms: [facility] (Burmese)
[2018-02-28 01:46] VITALS: BP 148/80; PULSE 55; RESP 18; TEMP 98.1; O2SAT 100
--- NOTE | 2018-02-28 10:07 | RAD ---
Date of service: 02/27/2018 PROCEDURE: Radiographs of the chest and abdomen (obstructive series) HISTORY: abd pain, hx of sbo COMPARISON: No prior. TECHNIQUE: AP radiograph of the chest, with upright and supine radiographs of the abdomen. FINDINGS: CHEST: Lungs: Clear. Cardiovascular: Normal size heart. No pulmonary vascular congestion. Pleura: No pleural fluid. No pneumothorax. Other findings: None. ABDOMEN AND PELVIS: Bowel: Unremarkable bowel gas pattern. No evidence of mechanical obstruction. Free air: None. Bones: Unremarkable. Other findings: None. IMPRESSION: Unremarkable radiographs of chest and abdomen. No evidence of mechanical bowel obstruction.
== END 2018-02-28 01:48 | disposition home or self-care (01) ==
LOC: H.ER 21:23
DX: R10.12 Left upper quadrant pain (principal)

== ENCOUNTER 2018-05-23 17:05 | Emergency (ER) | payer BC ==
[2018-05-23 17:27] VITALS: O2SAT 100
--- NOTE | 2018-05-23 17:45 | ED PDOC ---
HPI: Chest Pain Time Seen by Provider: 05/23/18 17:20 Chief Complaint (Nursing): Chest Pain Chief Complaint (Provider): Chest Pain History Per: Patient History/Exam Limitations: no limitations Onset/Duration Of Symptoms: Days (x9) Current Symptoms Are (Timing): Intermittent Episodes Additional Complaint(s): Edward Prescott, a 23 year old male, presents to the ED complaining of substernal intermittent chest pain onset x9 days ago. Patient reports the pain started when he was carrying a large water jug, which he does all the time for work, and was initially constant for the first x3 days. He was initially evaluated at [facility] and was advised to come to ED. He also reports having increasing difficulty swallowing over the past month. Patient reports seeing an ENT last month and nothing was found upon exam. He denies taking pain medications, shortness of breath, cough, and fever. PCP: [facility] Past Medical History Reviewed: Historical Data, Nursing Documentation, Vital Signs Vital Signs: Last Vital Signs Temp 97.7 F 05/23/18 17:26 Pulse 56 L 05/23/18 17:26 Resp 20 05/23/18 17:26 BP 143/85 05/23/18 17:26 Pulse Ox 100 05/23/18 17:26 - Medical History PMH: Asthma Denies: Anemia, Anxiety, Arthritis, Bronchitis, CHF, Crohn's Disease, Depression, Fibromyalgia, Fractures, Gastritis, Gall Bladder Disease, HIV, HTN, Hypercholesterolemia, Hyperthyroidism, Hypothyroidism, Kidney Stones, Migraine, Mitral Valve Prolapse, Pancreatitis, Peripheral Edema, Pneumonia, Pulmonary Embolism, Chronic Kidney Disease, Seizures, Sickle Cell Disease, Sleep Apnea - Surgical History Surgical History: Appendectomy (03/01/14) Denies: Cholecystectomy - Family History Family History: States: Unknown Family Hx - Social History Current smoker - smoking cessation education provided: Yes (occasionally) Alcohol: Occasional Drugs: Cannabis (daily) - Home Medications Home Medications: Ambulatory Orders Medication Instructions Recorded Dicyclomine [Bentyl] 20 mg PO BID #30 tab 02/28/18 Ibuprofen [Motrin Tab] 600 mg PO Q8 PRN #30 tab 05/23/18 - Allergies Allergies/Adverse Reactions: Allergies Allergy/AdvReac Type Severity Reaction Status Date / Time shellfish derived Allergy RASH Verified 05/23/18 17:16 Review of Systems ROS Statement: Except As Marked, All Systems Reviewed And Found Negative (and as per HPI) Constitutional: Negative for: Fever ENT: Positive for: Other (difficulty swallowing) Cardiovascular: Positive for: Chest Pain Respiratory: Negative for: Cough, Shortness of Breath Physical Exam - Reviewed Nursing Documentation Reviewed: Yes Vital Signs Reviewed: Yes - Physical Exam Appears: Positive for: Well, Non-toxic, No Acute Distress Head Exam: Positive for: ATRAUMATIC, NORMOCEPHALIC Skin: Positive for: Warm, Dry Eye Exam: Positive for: EOMI, PERRL ENT: Negative for: Pharyngeal Erythema, Tonsillar Exudate Neck: Positive for: Painless ROM, Supple Cardiovascular/Chest: Positive for: Bradycardia (with regular rhythm), Other (mild reproducible chest wall tenderness). Negative for: Edema, Murmur Respiratory: Positive for: Normal Breath Sounds, Other (lungs clear to auscultation bilaterally). Negative for: Crackles, Rales, Rhonchi, Wheezing, R espiratory Distress Gastrointestinal/Abdominal: Positive for: Soft. Negative for: Tenderness Back: Positive for: Normal Inspection. Negative for: Decreased ROM Extremity: Positive for: Normal ROM. Negative for: Deformity Lymphatic: Negative for: Adenopathy Neurologic/Psych: Positive for: Alert. Negative for: Motor/Sensory Deficits - Laboratory Results Result Diagrams: 05/23/18 18:00 05/23/18 18:00 Interpretation Of Abn Labs: No clinically significant lab abnormalities - ECG ECG: Positive for: Interpreted By [facility] ECG Rhythm: Positive for: Normal QRS, Normal ST Segment, Sinus Bradycardia O2 Sat by Pulse Oximetry: 100 (RA) Pulse Ox Interpretation: Normal - Radiology X-Ray: Read By Radiologist X-Ray Interpretation: No Acute Disease Medical Decision Making Medical Decision Making: Time: 17:34 Initial Impression: Chest pain. Differential diagnosis includes but not limited to costochondritis, stress, anxiety, reflux Initial Plan: --EKG --labs --Chest X-ray 5 --EKG showed sinus bradycardia with normal QRS and ST segments 1847 --Chest X-ray FINDINGS: LUNGS: No active pulmonary disease. PLEURA: No significant pleural effusion identified, no pneumothorax apparent. CARDIOVASCULAR: No atherosclerotic calcification present Normal. OSSEOUS STRUCTURES: No significant abnormalities. VISUALIZED UPPER ABDOMEN: Normal. OTHER FINDINGS: None. IMPRESSION: No active disease. No significant interval change compared to the prior examination(s). Labs unremarkable. Repeat ekg normal. DW pt and family findings and plan of care. Urged rest and followup with [facility] for further evaluation of swallowing difficulty. Gastroenterology referral advised. Scribe Attestation: Documented by Sandeep Treviño, acting as a scribe for Yeni Thurston MD. Provider Scribe Attestation: All medical record entries made by the Scribe were at my direction and personally dictated by me. I have reviewed the chart and agree that the record accurately reflects my personal performance of the history, physical exam, medical decision making, and the department course for this patient. I have also personally directed, reviewed, and agree with the discharge instructions and disposition. Disposition - Clinical Impression Clinical Impression: Chest pain - Disposition Referrals: [facility] [Provider Group] Disposition: Routine/Home Disposition Time: 20:00 Condition: GOOD Additional Instructions: FOLLOW UP AT [facility] FOR FURTHER EVALUATION OF YOUR SWALLOWING ISSUE. YOU MAY NEED A REFERRAL TO [facility]. AVOID ANY HEAVY LIFTING FOR ABOUT A WEEK. Prescriptions: Ibuprofen [Motrin Tab] 600 mg PO Q8 PRN #30 tab PRN Reason: Pain, Moderate (4-7) Instructions: Muscle Strain, Chest Pain That Is Not Caused by the Heart (DC) Forms: [facility] ED School/Work Excuse
[2018-05-23 18:04] LABS: BASO % 1.2 % (0.0-2.0); EOS # 0.2 K/uL (0.0-0.7); EOS % 4.2 % (0.0-4.0); HEMOGLOBIN 14.3 g/dL (12.0-18.0); LYMPH # 1.6 K/uL (1.0-4.3); LYMPH % 38.2 % (20.0-40.0); MEAN CELL VOLUME 90.5 fl (80.0-94.0); MEAN CORPUSCULAR HEMOGLOBIN 29.9 pg (27.0-31.0); MEAN PLATELET VOLUME 8.9 fl (7.2-11.7); MONO # 0.5 K/uL (0.0-0.8); MONO % 11.9 % (0.0-10.0); NEUT # 1.9 K/uL (1.8-7.0); NEUT % 44.5 % (50.0-75.0); NRBC % 0.1 % (0.0-0.0); RBC 4.77 Mil/uL (4.40-5.90); RED CELL DISTRIBUTION WIDTH 13.5 % (11.5-14.5); WHITE BLOOD COUNT 4.2 K/uL (4.8-10.8)
[2018-05-23 18:25] LABS: ALB/GLOB RATIO 1.3 (1.0-2.1); ALBUMIN 4.8 g/dL (3.5-5.0); ALT/SGPT 22 U/L (21-72); AST/SGOT 28 U/L (17-59); BLOOD UREA NITROGEN 12 mg/dl (9-20); CALCIUM 9.3 mg/dL (8.4-10.2); GFR NON-AFRICAN AMERICAN > 60
[2018-05-23 18:40] LABS: B-TYPE NATRIURETIC PEPTIDE 26.3 pg/ml (0-450)
--- NOTE | 2018-05-23 18:52 | RAD ---
Date of service: 05/23/2018 HISTORY: chest pain COMPARISON: 03/05/2014. FINDINGS: LUNGS: No active pulmonary disease. PLEURA: No significant pleural effusion identified, no pneumothorax apparent. CARDIOVASCULAR: No atherosclerotic calcification present Normal. OSSEOUS STRUCTURES: No significant abnormalities. VISUALIZED UPPER ABDOMEN: Normal. OTHER FINDINGS: None. IMPRESSION: No active disease. No significant interval change compared to the prior examination(s). Concordant results with the preliminary interpretation rendered by the emergency department physician procedure.
[2018-05-23 19:40] LABS: T3 1.07 nmol/L (1.49-2.60)
[2018-05-23 21:37] VITALS: BP 149/81; PULSE 63; RESP 15; TEMP 98.3
--- NOTE | 2018-05-24 09:18 | CARD ---
APPROVED REPORT Date of service: 05/23/2018 EKG Measurement Heart [id number] <Conclusion> Sinus bradycardia Otherwise normal ECG
== END 2018-05-23 20:50 | disposition home or self-care (01) ==
LOC: H.ER 17:05
DX: R07.89 Other chest pain (principal); R13.10 Dysphagia, unspecified; F17.200 Nicotine dependence, unspecified, uncomplicated; F41.9 Anxiety disorder, unspecified

== ENCOUNTER 2018-08-18 17:28 | Emergency (ER) | payer BC ==
[2018-08-18 18:43] VITALS: BP 148/83; PULSE 68; RESP 18; TEMP 98.6; O2SAT 99
--- NOTE | 2018-08-18 20:39 | ED PDOC ---
Upper Extremity Pain/Injury Time Seen by Provider: 08/18/18 18:51 Chief Complaint (Nursing): Finger,Hand,&Wrist Chief Complaint (Provider): right hand pain History Per: Patient History/Exam Limitations: no limitations Onset/Duration Of Symptoms: Days (x1) Current Symptoms Are (Timing): Still Present Additional Complaint(s): Edward Prescott is a 23 year old male, with no significant past medical history, who presents to the emergency department complaining of right hand pain onset yesterday. 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 He has been taking Ibuprofen, last dose at 09:30 and iced it yesterday. He denies any numbness or tingling in the hands. Patient denies any history of asthma or diabetes. No further medical complaints. PMD: [place] Past Medical History Reviewed: Historical Data, Nursing Documentation, Vital Signs Vital Signs: Last Vital Signs Temp 98.6 F 08/18/18 18:41 Pulse 68 08/18/18 18:41 Resp 18 08/18/18 18:41 BP 148/83 08/18/18 18:41 Pulse Ox 99 08/18/18 18:41 - Medical History PMH: Denies: Anemia, Anxiety, Arthritis, Bronchitis, CHF, Crohn's Disease, Depression, Fibromyalgia, Fractures, Gastritis, Gall Bladder Disease, HIV, HTN, Hypercholesterolemia, Hyperthyroidism, Hypothyroidism, Kidney Stones, Migraine, Mitral Valve Prolapse, Pancreatitis, Peripheral Edema, Pneumonia, Pulmonary Embolism, Chronic Kidney Disease, Seizures, Sickle Cell Disease, Sleep Apnea - Surgical History Surgical History: Appendectomy (03/01/14) Denies: Cholecystectomy - Family History Family History: States: Unknown Family Hx - Social History Current smoker - smoking cessation education provided: Yes (Light smoker <10 cigarettes daily) Alcohol: None - Home Medications Home Medications: Ambulatory Orders Medication Instructions Recorded Dicyclomine [Bentyl] 20 mg PO BID #30 tab 02/28/18 Ibuprofen [Motrin Tab] 600 mg PO Q8 PRN #30 tab 05/23/18 Ibuprofen [Motrin Tab] 800 mg PO Q6 PRN 7 Days tab 08/18/18 - Allergies Allergies/Adverse Reactions: Allergies Allergy/AdvReac Type Severity Reaction Status Date / Time shellfish derived Allergy RASH Verified 05/23/18 17:16 Review of Systems ROS Statement: Except As Marked, All Systems Reviewed And Found Negative Musculoskeletal: Positive for: Hand Pain (right lateral aspect) Neurological: Negative for: Numbness (or tingling to hands) Physical Exam - Reviewed Nursing Documentation Reviewed: Yes Vital Signs Reviewed: Yes - Physical Exam Appears: Positive for: No Acute Distress Head Exam: Positive for: ATRAUMATIC, NORMAL INSPECTION, NORMOCEPHALIC Skin: Positive for: Normal Color, Warm, Dry Eye Exam: Positive for: Normal appearance, EOMI, PERRL Neck: Positive for: Normal, Painless ROM Pulses-Radial (L): 2+ Pulses-Radial (R): 2+ Extremity: Positive for: Normal ROM (Full ROM with flexion and extension of all 5 digits and metacarpal phalangeal joint as well as wrist.), Tenderness (Point tenderness to palpation to the distal portion of the 4th metacarpal and proximal aspect of 5th metacarpal with associated mild swelling. ), Capillary Refill (<2 sec ), Swelling (mild to 4th and 5th metacarpal). Negative for: Deformity Neurologic/Psych: Positive for: Alert, Oriented. Negative for: Motor/Sensory Deficits - ECG O2 Sat by Pulse Oximetry: 99 (RA) Pulse Ox Interpretation: Normal Medical Decision Making Medical Decision Making: Time: 18:51 Initial Impression: Right hand pain Initial Plan: --Motrin tab 600mg PO --Hand right 3 views [RAD] --Reevaluation Patient refused ibuprofen. 20:45 -Right hand x-ray read by provider, shows a possible non-displaced fracture at the distal 5th metacarpal. Ulnar gutter splint to be placed and patient will be referred to Dr. Lemon, orthopedist, for further evaluation Scribe Attestation: Documented by Ricardo Pierce, acting as a scribe for Eleni Cordova PA-C. Provider Scribe Attestation: All medical record entries made by the Scribe were at my direction and personally dictated by me. I have reviewed the chart and agree that the record accurately reflects my personal performance of the history, physical exam, medical decision making, and the department course for this patient. I have also personally directed, reviewed, and agree with the discharge instructions and disposition. Procedures - Splinting Location: Right wrist Splint: ulnar (gutter) Pre-Proc Neuro Vasc Exam: normal Post-Proc Neuro Vasc Exam: normal, unchanged from pre-exam Disposition - Clinical Impression Clinical Impression: Boxers fracture - Disposition Referrals: [facility] Lemon MD [Medical Doctor] - Disposition: Routine/Home Disposition Time: 20:45 Condition: STABLE Additional Instructions: Take Ibuprofen for pain. F/u with Dr. Lemon for further evaluation of fracture. Prescriptions: Ibuprofen [Motrin Tab] 800 mg PO Q6 PRN 7 Days tab PRN Reason: Pain, Moderate (4-7) Instructions: Boxer's Fracture (DC) Forms: [facility] (Serbian) Print Language: YORUBA
--- NOTE | 2018-08-19 08:49 | RAD ---
PROCEDURE: Right Hand Radiographs. 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 FINDINGS: BONES: No acute fracture or destructive bony lesion identified. JOINTS: Normal. No osteoarthritic changes. SOFT TISSUES: Normal. OTHER FINDINGS: None. IMPRESSION: Unremarkable right hand radiographs.
== END 2018-08-18 21:34 | disposition home or self-care (01) ==
LOC: H.ER 17:28
DX: S62.306A Unspecified fracture of fifth metacarpal bone, right hand, initial encounter for closed fracture (principal); W22.8XXA Striking against or struck by other objects, initial encounter; Y93.71 Activity, boxing

== ENCOUNTER 2018-11-09 05:30 | Emergency (ER) | payer BC ==
[2018-11-09 05:39] VITALS: BP 133/76; PULSE 61; RESP 14; TEMP 97.6; O2SAT 100
--- NOTE | 2018-11-09 06:32 | ED PDOC ---
HPI: CCC, URI, Sore Throat Time Seen by Provider: 11/09/18 06:27 Chief Complaint (Nursing): ENT Problem Chief Complaint (Provider): ENT Problem History Per: Patient History/Exam Limitations: no limitations Current Symptoms Are (Timing): Still Present Location Of Pain: Ear(s) (left) Additional Complaint(s): Patient is a 23 year old male with a past medical history of asthma, who presents to the emergency department complaining of left sided ear pain. He denies having any known seasonal allergies. Patient states he smokes marijuana but does not smoke cigarettes. PMD: [place] Past Medical History Reviewed: Historical Data, Nursing Documentation, Vital Signs Vital Signs: Last Vital Signs Temp 97.6 F 11/09/18 05:37 Pulse 61 11/09/18 05:37 Resp 14 11/09/18 05:37 BP 133/76 11/09/18 05:37 Pulse Ox 100 11/09/18 05:37 - Medical History PMH: Asthma Denies: Anemia, Anxiety, Arthritis, Bronchitis, CHF, Crohn's Disease, Depression, Fibromyalgia, Fractures, Gastritis, Gall Bladder Disease, HIV, HTN, Hypercholesterolemia, Hyperthyroidism, Hypothyroidism, Kidney Stones, Migraine, Mitral Valve Prolapse, Pancreatitis, Peripheral Edema, Pneumonia, Pulmonary Embolism, Chronic Kidney Disease, Seizures, Sickle Cell Disease, Sleep Apnea - Surgical History Surgical History: Appendectomy (03/01/14) Denies: Cholecystectomy - Family History Family History: States: Unknown Family Hx - Social History Current smoker - smoking cessation education provided: No Drugs: Cannabis - Home Medications Home Medications: Ambulatory Orders Medication Instructions Recorded Dicyclomine [Bentyl] 20 mg PO BID #30 tab 02/28/18 Ibuprofen [Motrin Tab] 600 mg PO Q8 PRN #30 tab 05/23/18 Ibuprofen [Motrin Tab] 800 mg PO Q6 PRN 7 Days tab 08/18/18 Amoxicillin 875 mg PO BID #20 tablet 11/09/18 - Allergies Allergies/Adverse Reactions: Allergies Allergy/AdvReac Type Severity Reaction Status Date / Time shellfish derived Allergy RASH Verified 11/09/18 05:37 Review of Systems ROS Statement: Except As Marked, All Systems Reviewed And Found Negative Constitutional: Negative for: Fever ENT: Positive for: Ear Pain (left), Nose Congestion Physical Exam - Reviewed Nursing Documentation Reviewed: Yes Vital Signs Reviewed: Yes - Physical Exam Appears: Positive for: Non-toxic, No Acute Distress Head Exam: Positive for: ATRAUMATIC, NORMOCEPHALIC Skin: Positive for: Normal Color, Warm, Dry ENT: Positive for: TM Is/Are (Right: normal; Left: erythematous, swollen and bulging) Cardiovascular/Chest: Positive for: Regular Rate, Rhythm. Negative for: Murmur Respiratory: Positive for: Normal Breath Sounds. Negative for: Respiratory Dis tress - ECG O2 Sat by Pulse Oximetry: 100 (RA) Pulse Ox Interpretation: Normal Medical Decision Making Medical Decision Making: Time: 624 A/P: --Patient will be discharge with a Rx for amoxicillin . Informed patient that he can take an OTC allergy medication for his nasal congestion. ---- Scribe Attestation: Documented by Hayden Koo, acting as a scribe Mar Rodriguez MD. Provider Scribe Attestation: All medical record entries made by the Scribe were at my direction and personally dictated by me. I have reviewed the chart and agree that the record accurately reflects my personal performance of the history, physical exam, medical decision making, and the department course for this patient. I have also personally directed, reviewed, and agree with the discharge instructions and disposition. Disposition - Clinical Impression Clinical Impression: Left ear pain, Otitis media - Disposition Disposition: Routine/Home Disposition Time: 06:36 Condition: IMPROVED Additional Instructions: Take antibiotics as prescribed. Avoid using q-tips. Follow up with PMD in one week. Return to the emergency department if symptoms worsen or if new symptoms develop. Prescriptions: Amoxicillin 875 mg PO BID #20 tablet Instructions: Ear Infections (Otitis Media) (DC) Forms: [employer] (Tanzanian) Print Language: IRISH
== END 2018-11-09 06:49 | disposition home or self-care (01) ==
LOC: H.ER 05:30
DX: H66.90 Otitis media, unspecified, unspecified ear (principal); F12.90 Cannabis use, unspecified, uncomplicated